=== PATIENT | male | born 1980 ===

== ENCOUNTER → 2020-06-26 | Outpatient (CLI) | payer OTHER ==
[~2020-06-26] MED LIST: CIME300T PO; CYCL10TA2 PO; MELO7.5T5 PO
--- NOTE | 2020-06-26 08:59 | PDOC1 ---
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 Patient reports pain is in the low back bilateral lower extremities worse on the right than the left but present bilaterally patient reports is in the mid back low back radiating bilaterally into the posterior gluteus posterior lateral thigh lateral anterior thighs and lower legs but only intermittently the pain in the back is there constantly describes as co nstant pain changes during the day with activity standing sitting for more than 5 to 10 minutes can increase the pain as well as walking patient is doing some stretching strength exercise on his own he has had physical therapy in the past but nothing within the last year or 2 patient reports he does stretching and exercise on his own with some moderate decrease in pain patient also taking Mobic as well as Flexeril which do both decrease the pain by about 20%. Patient ports he wakes him from sleep at night least 2-3 times does not affect his bowel bladder control does affect his ability to walk but is not use any assistive devices. Patient reports pain is constant aching shooting at times in the legs throbbing stabbing burning cramping in the low back. Patient have an MRI scan results of which are pending at time of this dictation and [facility] Patient reports no overt loss of motor function but significant fatigability especially the right leg with walking. PAST MEDICAL HISTORY: PMH: No major medical problems or conditions PREVIOUS SURGERIES: Past Surgical Hx: Tonsillectomy as a child, appendectomy 2012, right wrist surgery 2014 CURRENT MEDICATIONS: Current Meds: Active Scripts Medications Dose Route/Sig Max Daily Dose Days Date Category Cimetidine 300 Mg Tablet 300 Mg PO DAILY 06/26/20 Reported Cyclobenzaprine Hcl 10 Mg Tablet 1 Tab PO DAILY 06/26/20 Reported Mobic (Meloxicam) 7.5 Mg Tablet 1 Tab PO DAILY 06/26/20 Reported ALLERGIES; Allergies: Coded Allergies: cefaclor (Verified Adverse Reaction, Intermediate, "trouble with vision", 06/26/20) FAMILY HISTORY: Family Hx: Hypertension SOCIAL HISTORY: Social Hx: Patient does not drink alcohol, does not smoke, or use other tobacco products. Patient does not use any illegal illicit recreational drugs. Patient is currently in active custody REVIEW OF SYSTEMS: ROS: Positive for those items mentioned in history of present illness, all systems are reviewed, otherwise negative, is complete full and well-documented on patient's chart PHYSICAL EXAM: VS: Blood pressure is 134/94 pulse 93 respirations 16 temperature 98.2 F height is 6 feet 2 inches weight is 228 pounds PE: PHYSICAL EXAMINATION: GENERAL: The patient is awake, alert, oriented, appropriate, very pleasant demeanor HEENT: Shows normocephalic, atraumatic. Extraocular movements are intact and symmetrical. Oral cavity: Mucous membranes moist and pink. Dentition is intact. NECK: Shows anterior throat supple without palpable lymphadenopathy noted. Swallow reflex symmetrical. CHEST: Shows normal on inspection. Breath sounds are clear bilaterally, no rales rhonchi wheezes auscultated. HEART: Shows S1, S2 clear. No murmurs auscultated. ABDOMEN: Soft, nontender, nondistended. No palpable organomegaly is noted. No rebound or guarding demonstrated. BACK: Shows spine grossly in the midline. Normal-appearing cervical lordotic curvature. There is slightly increased thoracic kyphosis, some minor flattening of the lumbar lordotic curvature. Lumbar paraspinous muscles show symmetrical on inspection, on palpation shows some moderate tenderness diffusely throughout the middle and lower distribution of the paraspinous muscles bilaterally, firm and tender, but without specific trigger points, without radiation of pain. The patient has good rotational motion of the lumbar spine, both laterally as well as extension and flexion without significant difficulty. No tenderness over the spinous processes, sacrum or sacroiliac regions. EXTREMITIES: Lower extremities show deep tendon reflexes 2+ in the patellar and tendo calcaneus tendons. Motor exam is 5 on a scale of 5 with right dorsiflexion, extension, quadriceps and hamstring flexion and 5/5 on the left. Peripheral pulses are 1+ posterior tibial. No peripheral edema is noted bilaterally. Lower extremities are warm and dry to touch, equal in color and appearance. Straight leg raise noted to be negative bilaterally. Gaenslen's and Elías's maneuvers are negative as well. The patient is able to stand, stand on his toes without significant difficulty or loss of balance has a normal-appearing gait as best as can be determined as patient is in leg shackles. SKIN: Shows warm and dry, good turgor. No edema. No sores, rashes or bruising throughout. IMPRESSION: Impression: 9-year-old male with 8-year history low back bilateral lower extremity pain and radicular fashion, with history of degenerative disc disease MRI scan lumbar spine results pending Plan: Options were discussed with the patient including conservative medical management physical therapies interventional techniques he like to pursue interventional techniques, we discussed a lumbar epidural steroid injection using description as well as anatomical models to describe the procedure. Patient will wait for preauthorization with his insurance provider and we will have him return for lumbar epidural steroid injection at that time. In meantime patient will continue with stretching strength exercises walking as tolerated, and current medication regimen. TWIN BERG MD Jun 26, 2020 08:59
== END ==
LOC: EEVIPCON 08:00 → PNCL 08:04
PROVIDERS: ATTEND Anesthesiology
DX: M54.5 Low back pain (principal); M79.605 Pain in left leg; M79.604 Pain in right leg; M51.36 Other intervertebral disc degeneration, lumbar region; Z88.8 Allergy status to other drugs, medicaments and biological substances; Z79.899 Other long term (current) drug therapy; Z82.49 Family history of ischemic heart disease and other diseases of the circulatory system
CPT/HCPCS: G0463